=== PATIENT | female | born 1925 | race Caucasian/White ===

== ENCOUNTER 2016-10-07 16:00 | Inpatient (IN) | payer MEDICARE, BC ==
[~2016-10-07] VITALS: Ht 160 cm; Wt 59.1 kg
--- NOTE | ~2016-10-07 | CATH ---
Cardiac Diagnostic Report Demographics Patient Name TOMMY López Gender Female Date of 1925 Age 89 year(s) Patient Number [id number] Date of Study 10/09/2016 Visit Number [id number] Room Number G6333 [place] [id number] Ht 160.02 cm Wt 58.6 kg Referring [facility] Enrique Kauffman Primary Physician Physician Performing Efstratiou Secondary Physician Physician Ilene Kauffman MD Diagnostic Efstratiou Assisting Physician Physician Ilene Kauffman MD Interventional Physician Brand Attendant Physician Findings and Conclusions Diagnostic Findings and Conclusion Moderate stenosis in distal LAD Diagnostic Recommendations Medical theapy Procedure Description The patient was brought to the diagnostic cardiac catheterization-EP laboratory in the fasting, non-sedated state. Informed consent was obtained in the written and verbal form after the risks and benefits were explained. The patient had no further questions and agreed to proceed. The planned puncture-incision site(s) were shaved and prepped with ChloraPrep and draped in the usual sterile manner. Conscious sedation, supplemental oxygen, and pain control medications were delivered by a registered nurse under physician guidance. Surface ECG rhythm, blood pressure measurement, and pulse oximetry were monitored throughout the procedure. Arterial access. The access site was infiltrated with lidocaine. The vessel was entered with the Seldinger technique. A sheath was advanced into the vessel and used for catheter placement. Selective left coronary angiography. A catheter was advanced into the left coronary vessel ostium under Fluoroscopic guidance. Contrast was injected by hand. Images were obtained in multiple projections. Selective right coronary angiography. A catheter was advanced into the right coronary vessel ostium under fluoroscopic guidance. Contrast was injected by hand. Images were obtained in multiple projections. Arterial artery hemostasis was achieved. The patient was transferred to a regular nursing floor via cart accompanied by a nurse. The patient left the laboratory in stable condition. Diagnostic Cath Status: Urgent Procedure Procedure Type Diagnostic procedure:Angiography:, Coronary Angios Indications: Atrial fibrillation and Shortness of breath. The procedure was explained in detail to the patient. Risks, complications and alternative treatments were reviewed. Written consent was obtained. Medications Reviewed with Patient prior to Procedure. Angiographic Findings Dominance: Right Cardiac Arteries and Lesion Findings LMCA: Normal (0% Stenosis). LAD: Abnormal.50% distal, very small caliber vessel Diag 20% Lesion on Dist LAD: Distal subsection.50% stenosis . Lesion on 1st Diag: Ostial.20% stenosis . LCx: Abnormal.25% prox Lesion on Prox CX: Proximal subsection.25% stenosis . RCA: Abnormal.20% mid Lesion on Mid RCA: Mid subsection.20% stenosis . Coronary Tree Procedure Data Procedure Date Date: 10/09/2016Start: 10:01 AMEnd: 10:35 AM Entry Locations - Retrograde Percutaneous access was performed through the Right Femoral artery (Primary location). A 6 Fr sheath was inserted. Hemostasis was successfully obtained using Angio-Seal STS PLUS ([facility]). Closure Comments: deployed by dr Jonas Procedure Medications Order and Administration + + +-------+------+ !Time !Medication !Dosage !Route ! + + +-------+------+ !10/09/2016 10:03 AM !Fentanyl !25 mcg !I.V. ! + + +-------+------+ Devices Used - A6 Fr. BS JR 4 Diag. Catheterwas used for:Right coronary angiography. - A6 Fr. BS JL 3.5 Diag. Catheterwas used for:Left coronary angiography. Contrast Material - Isovue 46965 ml Fluoroscopy Time: Diagnostic: 3:12 minutes. Total: 3:12 minutes. Fluoroscopy Dose: Diagnostic: 306 mGy. Total: 306 mGy. Estimated Blood Loss: 15 ml. Medical History Allergies - Iodine. Risk Factors The patient risk factors include:family history of premature CAD, chronic lung disease, last creatinine: 0.8 mg/dl and creatinine clearance: 44.1 ml/min. Admission Data Admission Date: 10/08/2016 Admission Time: 05:03 PM Admit Source: Other Insurance Payors: Medicare. Admission Medications + +------+------+ + + + + !Medication !Dosage!Times !Last !Last !Administered !Comments ! ! ! !Per !Delivery !Delivery ! ! ! ! ! !Day !Date !Time ! ! ! + +------+------+ + + + + !Beta [place]! ! ! ! ! ! ! !(any) ! ! ! ! ! ! ! + +------+------+ + + + + !Ticlopidine ! ! ! ! ! ! ! + +------+------+ + + + + !Statin (any)! ! ! ! ! ! ! + +------+------+ + + + + Clinical Evaluation Leading to Procedure - There were no CAD presentation symptoms. - There were no anginal symptoms. Anti-anginal medications were prescribed during the past two weeks. The medication is: Beta Blockers. VA LV function assessed . Ejection Fraction - 10/08/2016 - Method: Radionucleotide. EF%: 74. Snapshots Hemodynamics Condition: Rest O2 Consumption: Estimated: 133.96Heart Rate: 57 bpm Pressures (mmHg) +-----+ + !Site !Pressure ! +-----+ + !AO !130/44 (77) ! +-----+ + Shunts Oxygen Values O2 Capacity 149.6 O2 Consumption 133.96 Discharge Data Discharge Date: 10/09/2016 Hospital Status: Inpatient Signatures dtt: Deborah Dejesus dtd: 10/09/16 1001 Physician Self Edit
--- NOTE | ~2016-10-07 | ESTC ---
Cardiac Perfusion Imaging Demographics Patient Name TOMMY López Gender Female Patient Number [id number] Race Visit Number [id number] Ethnicity [employer] ID Room Number G6333 Accession Number [id number] Height Date of 1925 Weight Age 89 year(s) BSA Referring Physician Oleg Kauffman MD Interpreting [place] Date of study 10/08/2016 Physician Irving Ramirez MD Supervising MD/MLP Oleg MANN Technologist Erika Kauffman MD Ordering Physician Oleg Kauffman MD teletype technician Stress ECG Reading Oleg Odom Nurse Ninfa López Physician Daly CODY buckle inspector Procedure Type: Nuclear Stress Test:Pharmacological, Lexiscan, Cardiolite Stress Test Procedure Start time: 10/08/2016 08:29 Indications: Atrial fibrillation. Risk Factors The patient risk factors include:chronic lung disease. Conclusions Summary Perfusion Images: The overall quality of the study is good. Left ventricular cavity is noted to be normal on the stress and normal on the rest images. There is no evidence of abnormal lung activity. The right ventricle is not visualized an cannot be assessed. Impression ECG portion of lexiscan stress test is clinically negative for ischemia by diagnostic criteria. Myocardial perfusion imaging is normal. Overall left ventricular systolic function was normal without regional wall motion abnormalities. Calculated LVEF is 74% and TID ratio is 1.15. There are no previous studies for comparison. Stress Protocols Resting ECG A fib Pre-stress physical exam: Patient assessed by Dr Dejesus prior to testing. Stress Protocol:Pharmacologic Peak HR:121 bpm HR/BP product:[id number] Peak BP:132/56 mmHg Predicted HR: 131 bpm % of predicted HR: 92 ECG Findings No ECG changes suggestive of ischemia. Arrhythmias No new rhythm abnormality. Symptoms No symptoms with Lexiscan infusion. Stress Interpretation Appropriate hemodynamic response to Lexiscan. No significant ST-T wave changes with Lexiscan. ECG portion is negative for ischemia by diagnostic criteria. Imaging Results Summed scores - Summed stress score: 14 - Summed rest score: 9 - Summed difference score: 5 Stress ejection Ejection fraction:75 % EDV :36 ml ESV :9 ml Stroke volume :27 ml LV mass :68 gr Imaging Protocols Rest Stress Isotope:Tc99m Sestamibi IV Isotope: Tc99m Sestamibi IV Isotope dose:10.5 mCi Isotope dose:31.5 mCi Date:10/08/2016 07:23 Date:10/08/2016 08:55 Technique: SPECT Technique: Gated Supine SPECT Supine IV remains in place after procedure. Scan Time:45-60 minutes post Scan Time:45-60 minutes post injection injection Procedure Medications - Regadenoson (Lexiscan) 0.4 mg IV over 10-15 sec. I.V. 0.4 mg. Medical History Admission Data Admission date: 10/07/2016 Admission Time: 16:14 Hospital Status: Inpatient. Signatures dtt: CHRIS LUIS dtd: 10/08/16 0829 Physician Self Edit
[~2016-10-07 16:00] MED LIST: ALDACTONE25 MG PO; ASCORBIC ACID500 MG PO; ATIVAN 1 MG1 MG PO; BIOTIN5000 MCG PO; CELEXA20 MG PO; CENTRUM COMPLE1 EACH PO; COLCHICINE0.6 MG PO; DIAMOX250 MG PO; DRISDOL 5050000 UNIT PO; DULERA 100 MCG/51 EA INH; ELIQUIS2.5 MG PO; ESTRACE(ESTRADIO1 MG PO; FISH OIL 1,0001 EACH PO; LACTINEX (FLORA1 TAB PO; LASIX20 MG PO; LEVOTHROID(SYN75 MCG PO; LYRICA 50MG CAP50 MG PO; N-Acetyl-L-Cysteine PO; NAC PO; OSCAL + D500 MG PO; PROBIOTIC1 EAC1 PO; PROVENTIL OR V6.7 GM INH; REMERON 30 MG30 MG PO; SYMBICORT 80-10.2 GM INH; THERAGRAN-M1 TAB PO; TIKOSYN250 MCG PO; VITAMIN B-121000 MCG PO
--- NOTE | 2016-10-07 17:30 | NUR ---
ADMIT NOTE: A/O X 3. DENIES PAIN. HAD SCHEDULED APPT. WITH DR. JOHNSON FOR HER ROUTINE CHECK UP WITH HER PULM. FIBROSIS. PT. FOUND TO BE WITH A-FIB RVR. SENT TO DR. MCNEIL OFFICE. PT. ON ELIQUIS, HAS HX: OF A-FIB. PT. STATES SHE HAS NOTED INCREASE IN SHORTNESS OF BREATH, FOR A WHILE WITH EXCERTION ONLY. SHE ALWAYS WEARS 02 AT 3 LPM. CONT. PLAN OF CARES WITH CARDIAC STATUS.
[2016-10-07 17:39] LABS: CPK 54 IU/L (21-215)
--- NOTE | 2016-10-07 21:09 | NUR ---
89 Y/O FEMALE ADMITTED FOR TITRATION OF TIKOSYN FOR HER A-FIB. PT IS A&OX3, ABLE TO MOVE ALL EXTREMITIES. 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 HX DVT IN RT LEG IN 2007 COLON RESECTION, APPY, CHIDI/BSO, BACK SURGERY, BREAST LUMPECTOMY REPORT GIVEN TO [facility] NURSE RN ADM EDUCATION ALREADY KNOWLEDGED
--- NOTE | 2016-10-08 12:35 | NUR ---
Spoke with nursing and pt is down for a stress test and maybe cardiovert tomorrow if she doesn't with meds. Nursing states pt is very independent with cares and does not anticipate any dc needs.
--- NOTE | 2016-10-08 16:49 | NUR ---
Significant Event: A/O X 3. UP TO BATHROOM AND RETURNS TO BED. AFEBRILE. HR CONVERTED FROM A-FIB TO SR AT 1215 TODAY. SATS 96% ON 3 LPM, AT HOME 02 SET UP. SBP 108-118. LEXISCAN TODAY. AWAIT RESULTS. Follow up: CONT. TO MONITER CARDIAC STATUS.
[2016-10-09 03:36] LABS: ANION GAP 10.4 (10.0-19.0); BLOOD UREA NITROGEN 20 mg/dL (6-24); CALCIUM 9.1 mg/dL (8.5-10.5); CHLORIDE 109 mMol/L (96-110); CO2 27 mMol/L (22-32); CREATININE 0.8 mg/dL (0.5-1.1); ESTIMATED GFR (MDRD EQUATION) > 60; POTASSIUM 3.4 mMol/L (3.7-5.1); SODIUM 143 mMol/L (135-145)
--- NOTE | 2016-10-09 07:30 | NUR ---
Significant Event: DENIES PAIN ALL NIGHT. NPO AFTER MIDNIGHT FOR HEART CATH THIS AM. NS AT 100 STARTED AT 0410. REMAINS ON 3L NC PER HOME DOSE. UP WITH MINIMAL ASSIST TO BR. STEADY GAIT. Follow up:
[2016-10-09 07:40] LABS: ALK PHOS 77 IU/L (33-138); ALT 17 IU/L (12-78); ANION GAP 11.6 (10.0-19.0); AST 22 IU/L (10-40); BLOOD UREA NITROGEN 19 mg/dL (6-24); CHLORIDE 109 mMol/L (96-110); CO2 26 mMol/L (22-32); CREATININE 0.8 mg/dL (0.5-1.1); ESTIMATED GFR (MDRD EQUATION) > 60; POTASSIUM 3.6 mMol/L (3.7-5.1); SODIUM 143 mMol/L (135-145); TOTAL BILIRUBIN 0.4 mg/dL (0.0-1.5); TOTAL PROTEIN 6.8 g/dL (6.0-8.4)
[2016-10-09 07:47] LABS: INR - (THERAPEUTIC) 1.01 (0.92-1.07); PROTIME 10.6 SECONDS (9.8-11.4); PTT 25 SECONDS (25-32)
[2016-10-09 08:01] LABS: BASOPHIL # 0.1 K/uL (0.0-0.2); BASOPHIL % 1.3 %; EOSINOPHIL # 0.3 K/uL (0.0-0.5); HEMATOCRIT 33.5 % (30.0-46.0); IMMATURE GRANULOCYTE # 0.1 K/uL (0.0-0.3); IMMATURE GRANULOCYTE % 1.1 %; LYMPHOCYTE # 1.5 K/uL (0.8-4.0); LYMPHOCYTE % 24.9 %; MCH 30.9 pg (27.0-34.0); MCHC 32.8 gm/dL (32.0-36.5); MCV 94.1 fl (83.0-98.0); MONOCYTE # 0.6 K/uL (0.0-1.0); MONOCYTE % 9.3 %; MPV 8.9 fl (9.4-12.4); NEUTROPHIL # (ANC) 3.6 K/uL (1.8-7.8); NEUTROPHIL % 58.4 %; NRBC % 0 /100WBC (0-0.00); RBC 3.56 M/uL (3.00-5.00); RDW-CV 14.1 % (11.9-14.6); WBC 6.1 K/uL (4.0-11.0)
[2016-10-09 08:06] LABS: PLATELET COUNT 169 K/uL (150-450)
--- NOTE | 2016-10-09 15:50 | NUR ---
Introduced self and role of care management to pt. She lives alone in [place] and her son is aobut 5 blocks away. She states she is independent with cares and does not use any dme. 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 She plans on home when ready and denies any needs. Will assist as needed.
--- NOTE | 2016-10-09 16:26 | NUR ---
Significant Event: pt had heart cath treat medicines. 02 3liters. Pt mary most of day upper 50s, sbp 90-130. No c/o pain. Up to bathroom. R)groin angiosealed and is normal c/d/i. Pt family here. DC tonight? Follow up:
[2016-10-09] MEDS ORDERED: TIKOSYN500 MCG PO (18:00)
[2016-10-09] MEDS ORDERED: LIPITOR20 M1 PO (18:16)
[2016-10-09] MEDS ORDERED: LOPRESSOR25 MG PO (18:25)
== END 2016-10-09 15:00 | disposition disaster alternative care site (69) | DRG 287 ==
LOC: GPCU 16:14
PROVIDERS: ADMIT Internal Medicine Cardiovascular Disease
PROC: B2111ZZ Fluoroscopy of Multiple Coronary Arteries using Low Osmolar Contrast (ICD-10-PCS; principal; 2016-10-09)
DX: I48.1 Persistent atrial fibrillation (principal); J84.10 Pulmonary fibrosis, unspecified; Z99.81 Dependence on supplemental oxygen; I25.10 Atherosclerotic heart disease of native coronary artery without angina pectoris; I10 Essential (primary) hypertension; I73.9 Peripheral vascular disease, unspecified; Z82.49 Family history of ischemic heart disease and other diseases of the circulatory system
CPT/HCPCS: A9500; C1760; C1894; G0237; G0378; J1644; J2785; J3010; J7030; J7050

== ENCOUNTER → 2016-10-23 | Outpatient (CLI) | payer MEDICARE, BC ==
[~2016-10-23] MED LIST changes: +LIPITOR20 M1 PO; +LOPRESSOR25 MG PO; +TIKOSYN500 MCG PO
[2016-10-23 14:24] LABS: ANION GAP 13.8 (10.0-19.0); BLOOD UREA NITROGEN 20 mg/dL (6-24); CALCIUM 9.4 mg/dL (8.5-10.5); CHLORIDE 106 mMol/L (96-110); CO2 26 mMol/L (22-32); CREATININE 0.7 mg/dL (0.5-1.1); ESTIMATED GFR (MDRD EQUATION) > 60; POTASSIUM 3.8 mMol/L (3.7-5.1); SODIUM 142 mMol/L (135-145)
== END | disposition disaster alternative care site (69) ==
LOC: LNHI 14:00
PROVIDERS: Internal Medicine Cardiovascular Disease
DX: I48.91 Unspecified atrial fibrillation (principal); I25.10 Atherosclerotic heart disease of native coronary artery without angina pectoris

== ENCOUNTER → 2017-02-02 | Outpatient (CLI) | payer MEDICARE, BC | END | disposition disaster alternative care site (69) | LOC: GRAD 01-21 09:00 | DX: J84.10 Pulmonary fibrosis, unspecified (principal) ==